=== PATIENT | female | born 1975 | race Hispanic/Latino ===

== ENCOUNTER 2019-01-18 19:28 | Emergency (ER) | payer BC, OTHER ==
--- OUTSIDE RECORDS SUMMARY | 2019-01-18 19:32 | XMS REPORT ---
[facility] Address Unknown Phone Unavailable Care Team Providers Care Sales Route Driver Name Role Phone REYES BUCKNER Unavailable Unavailable Problems This patient has no known problems. Allergies, Adverse Reactions, Alerts This patient has no known allergies or adverse reactions. Medications This patient has no known medications. Results Test Description Test Time Test Comments Text Results Atomic Results Result Comments SP LUMBAR, COMPLETE MIN 4VW [place] [id number] Patient Name: ADNIELLE TSE MR #: [id number] : 1975 Age/Sex: 42/F Req #: [id number] [facility] Physician: Ordered by: REYES BUCKNER MD Report #: [id number] Location: [facility] Room/Bed: Procedure: [id number] DX/SP LUMBAR, COMPLETE MIN 4VW Exam Date: 06/10/17 Exam Time: 1355 REPORT STATUS: Signed PROCEDURE: L-SPINE COMPLETE COMPARISON: None. INDICATIONS: RIGHT HIP/LOW BACK PAIN FINDINGS: There are 5 lumbar- type vertebral bodies. The vertebral bodies are well-aligned without evidence of spondylolisthesis. There are no fractures, lytic or blastic lesions. The disc-space heights are well-maintained. The sacroiliac joints are unremarkable. CONCLUSION: No acute radiographic abnormality. Dictated by: Parvin Lara M.D. on 06/10/2017 at 14:50 Electronically approved by: Parvin Lara M.D. on 06/10/2017 at 14:50 Dictated By: PARVIN LARA MD 49 Transcribed By: TAMIKA on 06/10/171449 COPY TO: REYES BUCKNER MD
== END 2019-01-18 20:45 | disposition left against medical advice (07) ==
LOC: ER 19:28
DX: R10.9 Unspecified abdominal pain (principal)